=== PATIENT | male | born 1985 | race Two or more races ===

== ENCOUNTER 2020-07-16 13:20 | Emergency (ER) | payer BC ==
[~2020-07-16] VITALS: Ht 167.6 cm; Wt 93.0 kg
[2020-07-16 13:31] VITALS: BP 154/96
--- NOTE | 2020-07-16 15:43 | NUR ---
swab collected and sent to lab
--- NOTE | 2020-07-16 15:45 | NUR ---
Patient discharged to home in stable condition. Written and verbal after care instructions given. Patient verbalizes understanding of instruction.
== END 2020-07-16 15:45 | disposition home or self-care (01) ==
LOC: ER 13:30
DX: U07.1 COVID-19 (principal)
CPT/HCPCS: 87426; 99283; C9803

== ENCOUNTER 2020-07-29 15:43 | Emergency (ER) | payer BC ==
[~2020-07-29] VITALS: Ht 167.6 cm; Wt 93.0 kg
--- NOTE | 2020-07-29 16:50 | NUR ---
PT REPORTS HE NOW FEELS BETTER, STATES "I THINK I WAS JUST ANXIOUS"
[2020-07-29 17:38] VITALS: BP 144/86
== END 2020-07-29 17:39 | disposition home or self-care (01) ==
LOC: ER 15:47
DX: F41.9 Anxiety disorder, unspecified (principal); R00.0 Tachycardia, unspecified

== ENCOUNTER 2022-07-30 09:11 | Emergency (ER) | payer BC ==
[~2022-07-30] VITALS: Ht 167.6 cm; Wt 92.5 kg
--- NOTE | 2022-07-30 09:30 | NUR ---
headache and palpitation since midnight, last used cocaine last night
[2022-07-30 11:21] VITALS: BP 154/98
--- NOTE | 2022-07-30 11:22 | NUR ---
Patient discharged to home in stable condition. Written and verbal after care instructions given. Patient verbalizes understanding of instruction.
== END 2022-07-30 11:31 | disposition home or self-care (01) ==
LOC: ER 09:19
DX: F14.10 Cocaine abuse, uncomplicated (principal)
CPT/HCPCS: 70450-TC

== ENCOUNTER 2023-04-28 11:34 | Emergency (ER) | payer BC ==
[~2023-04-28] VITALS: Ht 170.2 cm; Wt 89.8 kg
[2023-04-28] MEDS ORDERED: LORAZEPAM 1 MG TABLET ONE (11:58)
[2023-04-28] MEDS ORDERED: ACETAMINOPHEN ES 500 MG TABLET ONE (11:58)
[2023-04-28] MEDS ORDERED: LORAZEPAM 1 MG TABLET PO ONE (12:00)
[2023-04-28] MEDS ORDERED: ACETAMINOPHEN ES 500 MG TABLET PO ONE (12:00)
[2023-04-28 12:48] VITALS: BP 140/85; TEMP 98.1; O2SAT 100
== END 2023-04-28 12:48 | disposition home or self-care (01) ==
LOC: ER 11:43
DX: R51.9 Headache, unspecified (principal); F41.9 Anxiety disorder, unspecified